=== PATIENT | female | born 1960 | race Caucasian/White ===

== ENCOUNTER → 2016-12-09 | Outpatient (CLI) | payer MEDICARE, MEDICAID ==
[~2016-12-09] MED LIST: AMOXICILLIN 8751 TAB PO; ANUSOL-HC SUPPO25 MG RC; ASPIRIN 81M81 MG/TA2 PO; BACTRIM DS 8001 TAB PO; CALCIUM PO; CEFTIN500 MG PO; CELEXA 20MG20 MG/TAB PO; CELEXA40 MG PO; CEPHALEXIN500 M1 PO; CIPRO 500MG TA500 MG PO; CLARITIN 1010 MG/TAB PO; COLACE 100100 MG/CAP PO; FLAGYL500 MG PO; GLUCOPHAGE850 MG/TAB PO; GLUCOTROL 5M5 MG/TAB PO; JANUVIA50 MG PO; LAMICTAL 100MG100 MG PO; LANTUS100 U/ML SC; LASIX 20MG TABL20 MG PO; LIPITOR 10MG10 MG PO; LOPRESSOR 225 MG/TAB PO; MED FOR ANXIETY; MOBIC 7.5MG7.5 MG PO; MOTRIN 600600 MG/TAB PO; NORCO 325 MG-51 TAB PO; PERCOCET 325 MG1 TA2 PO; PHENERGAN 25 TA25 MG PO; PRIL40 PO; PRINIVIL10 MG PO; PRINZIDE 12.5 M1 TA1 PO; PROTONIX 40MG T40 MG PO; REGLAN 10MG10 MG/TAB PO; SEROQUEL 2525 MG/TAB PO; SEROQUEL50 MG PO; TRADJENTA5 MG PO; ULTRAM 50MG TAB50 MG PO; ZOFRAN 4MG T4 MG/TAB PO; ZOFRAN ODT4 MG PO; ZOFRAN8 MG PO; ZYRTEC 10MG10 MG PO; ZYVOX 600MG600 MG PO
== END ==
LOC: BHSO 08:44
DX: F33.1 Major depressive disorder, recurrent, moderate (principal)

== ENCOUNTER → 2017-01-07 | Outpatient (CLI) | payer MEDICARE, MEDICAID | LOC: BHSO 09:49 | DX: F31.81 Bipolar II disorder (principal) ==

== ENCOUNTER → 2017-03-07 | Outpatient (CLI) | payer MEDICARE | LOC: BHSO 09:57 | DX: F41.1 Generalized anxiety disorder (principal) ==

== ENCOUNTER 2017-04-06 13:07 | Emergency (ER) | payer MEDICARE ==
[~2017-04-06] VITALS: Ht 160 cm; Wt 111.8 kg
[2017-04-06 13:18] VITALS: BP 141/67; TEMP 98.4
[2017-04-06] MEDS ORDERED: SEROQUEL 1100 MG/TAB PO (13:43)
[2017-04-06] MEDS ORDERED: LIPITOR 40MG TA40 MG PO (13:43)
[2017-04-06] MEDS ORDERED: SYNTHROID0.075 MG/T PO (13:44)
[2017-04-06] MEDS ORDERED: ZOLOFT 50MG50 MG PO (13:44)
[2017-04-06] MEDS ORDERED: TESSALON PERLE200 MG PO (14:54)
[2017-04-06 15:02] VITALS: PULSE 66
== END 2017-04-06 15:02 | disposition home or self-care (01) ==
LOC: COL.ER 13:07
DX: R05 Cough (principal); F41.9 Anxiety disorder, unspecified; F32.9 Major depressive disorder, single episode, unspecified; E11.9 Type 2 diabetes mellitus without complications; Z79.4 Long term (current) use of insulin; Z87.891 Personal history of nicotine dependence

== ENCOUNTER → 2017-07-06 | Outpatient (CLI) | payer MEDICARE ==
[~2017-07-06] MED LIST changes: +LIPITOR 40MG TA40 MG PO; +SEROQUEL 1100 MG/TAB PO; +SYNTHROID0.075 MG/T PO; +TESSALON PERLE200 MG PO; +ZOLOFT 50MG50 MG PO
== END ==
LOC: BHSO 11:37
DX: F41.1 Generalized anxiety disorder (principal)
CPT/HCPCS: G0463

== ENCOUNTER 2017-08-07 20:50 | Emergency (ER) | payer MEDICARE ==
[~2017-08-07] VITALS: Ht 160 cm; Wt 106.8 kg
[2017-08-07 20:54] VITALS: BP 144/64; PULSE 76; TEMP 98.4
[2017-08-07] MEDS ORDERED: BACTRIM DS 8001 TAB PO (21:28)
[2017-08-07] MEDS ORDERED: CLARITIN 1010 MG/TAB PO (21:42)
[2017-08-07] MEDS ORDERED: WOMEN'S DAILY1 TAB PO (21:42)
== END 2017-08-07 21:49 | disposition home or self-care (01) ==
LOC: COL.ER 20:50
DX: L03.112 Cellulitis of left axilla (principal); E11.9 Type 2 diabetes mellitus without complications; F32.9 Major depressive disorder, single episode, unspecified; F41.9 Anxiety disorder, unspecified; F03.90 Unspecified dementia, unspecified severity, without behavioral disturbance, psychotic disturbance, mood disturbance, and anxiety; E03.9 Hypothyroidism, unspecified; E78.5 Hyperlipidemia, unspecified; Z87.891 Personal history of nicotine dependence; Z90.710 Acquired absence of both cervix and uterus; Z98.890 Other specified postprocedural states; Z79.4 Long term (current) use of insulin

== ENCOUNTER → 2017-10-03 | Outpatient (REF) ==
[~2017-10-03] MED LIST changes: +WOMEN'S DAILY1 TAB PO
== END ==
LOC: ZLAB.WCH 08:39
DX: Z01.89 Encounter for other specified special examinations (principal)

== ENCOUNTER → 2017-11-14 | Outpatient (REF) | LOC: ZLAB.WCH 18:10 | DX: Z01.89 Encounter for other specified special examinations (principal) ==

== ENCOUNTER → 2018-02-22 | Outpatient (REF) | LOC: ZLAB.WCH 17:10 | DX: Z01.89 Encounter for other specified special examinations (principal) ==

== ENCOUNTER 2018-04-04 22:54 | Emergency (ER) | payer MEDICARE ==
[~2018-04-04] VITALS: Ht 160 cm; Wt 113.6 kg
[2018-04-04 23:01] VITALS: TEMP 98.6
[2018-04-04 23:38] LABS: BASO # 0.1 (0.0-0.2); BASO % 0.4 % (0.0-2.0); EOS # 0.2 (0.0-0.7); EOS % 1.4 % (0-4.0); GRAN # 8.7 (1.4-6.5); GRAN % 76.6 % (42.2-75.2); HEMOGLOBIN 12.2 g/dl (12.5-16.0); LYMPH # 1.9 (1.2-3.4); LYMPH % 16.6 % (20.0-51.0); MEAN CELL VOLUME 92 fl (80.0-100.0); MEAN CORPUSCULAR HEMOGLOBIN 30 pg (27.0-31.0); MEAN CORPUSCULAR HGB CONC 33 g/dl (33.0-37.0); MEAN PLATELET VOLUME 10.9 fl (7.4-10.4); MONO # 0.5 (0.1-0.6); MONO % 4.6 % (1.7-9.3); PLATELET COUNT 182 K/mm3 (130-400); RED BLOOD COUNT 4.04 M/mm3 (4.10-5.30); REDCELL DISTRIBUTION WIDTH-CV 13.2 % (11.5-14.5)
[2018-04-04 23:43] LABS: INR 1.1 (0.8-3.0); PROTHROMBIN TIME 12.1 SECONDS (9.7-12.8)
[2018-04-04 23:50] LABS: ALANINE AMINOTRANSFERASE 20 U/L (9-52); ALBUMIN 4.3 gm/dL (3.5-5.0); ALKALINE PHOSPHATASE 125 U/L (50-136); ANION GAP 9 mmol/L (7-16); AST,SGOT 26 U/L (15-37); BILIRUBIN,TOTAL 0.3 mg/dL (0.0-1.0); BLOOD UREA NITROGEN 27 mg/dL (7-17); CALCIUM 9.3 mg/dL (8.4-10.2); CARBON DIOXIDE 26 mmol/L (22-30); CHLORIDE 109 mmol/L (98-107); CREATININE, serum 1.54 mg/dL (0.52-1.25); GLUCOSE 183 mg/dL (74-106); POTASSIUM 4.2 mmol/L (3.4-5.0); SODIUM 144 mmol/L (137-145); TOTAL PROTEIN 7.7 gm/dL (6.4-8.2)
[2018-04-05 00:32] LABS: TROPONIN-I < 0.012 ng/mL (0.000-0.034)
[2018-04-05 01:53] LABS: COLLECTION METHOD CLEAN CATCH
[2018-04-05 02:21] LABS: MUCOUS Present /lpf; PH 5 (5-8); SQUAMOUS EPITHELIAL 20-50 /hpf; URINE APPEARANCE Cloudy; URINE BACTERIA Rare /hpf; URINE BILIRUBIN Negative (NEGATIVE); URINE BLOOD Negative (NEGATIVE); URINE COLOR Yellow; URINE GLUCOSE Negative (NEGATIVE); URINE KETONE Negative (NEGATIVE); URINE LEUKOCYTE ESTERASE 3+ (NEGATIVE); URINE NITRATE Negative (NEGATIVE); URINE PROTEIN(semi-quant) Negative (NEGATIVE); URINE UROBILINOGEN Negative (NEGATIVE)
[2018-04-05 03:20] VITALS: BP 108/53; PULSE 66
== END 2018-04-05 03:36 | disposition home or self-care (01) ==
LOC: COL.ER 22:54
PROVIDERS: Emergency Medicine
DX: R07.89 Other chest pain (principal); N39.0 Urinary tract infection, site not specified; I12.9 Hypertensive chronic kidney disease with stage 1 through stage 4 chronic kidney disease, or unspecified chronic kidney disease; E11.22 Type 2 diabetes mellitus with diabetic chronic kidney disease; N18.9 Chronic kidney disease, unspecified; K21.9 Gastro-esophageal reflux disease without esophagitis; E78.5 Hyperlipidemia, unspecified; E66.9 Obesity, unspecified; Z68.41 Body mass index [BMI] 40.0-44.9, adult; Z79.4 Long term (current) use of insulin
CPT/HCPCS: A4216; J0696

== ENCOUNTER 2018-06-06 07:46 | Day surgery (SDC) | payer MEDICARE ==
[~2018-06-06] VITALS: Ht 160 cm; Wt 114.4 kg
[2018-06-06] MEDS ORDERED: LIPITOR 10MG10 MG PO (08:12)
[2018-06-06] MEDS ORDERED: FLEXERIL 1010 MG/TAB PO (08:13)
[2018-06-06] MEDS ORDERED: PRINIVIL5 MG PO (08:14)
[2018-06-06] MEDS ORDERED: CARAFATE 1GM1 G PO (08:16)
[2018-06-06 08:17] VITALS: BP 125/70; PULSE 66; TEMP 97.2
[2018-06-06] MEDS ORDERED: TYLENOL 500MG500 MG PO (08:17)
[2018-06-06 09:25] VITALS: BP 137/61; PULSE 60; TEMP 97.1
[2018-06-06 09:40] VITALS: BP 134/64; PULSE 55
[2018-06-06 09:55] VITALS: BP 122/61; PULSE 60
[2018-06-06 10:10] VITALS: BP 131/59; PULSE 63
--- NOTE | 2018-06-06 10:38 | NUR ---
Pt returned via cart to [facility]. Pt A&O. VSS-see flowsheet. Pt tolerated a muffin and coffee. Daughter, Joselin and son in law present. Dr Brown visited with family and pt after procedure. Discharge teaching completed, all verbalized understanding. Pt dressing after IV removed and taken via wheelchair to private vehicle for dc home with son in law driving.
== END 2018-06-06 10:38 | disposition home or self-care (01) ==
LOC: SDCO 07:46
DX: K29.30 Chronic superficial gastritis without bleeding (principal); E07.9 Disorder of thyroid, unspecified; E11.9 Type 2 diabetes mellitus without complications; Z79.4 Long term (current) use of insulin; Z79.899 Other long term (current) drug therapy; I25.119 Atherosclerotic heart disease of native coronary artery with unspecified angina pectoris; K21.9 Gastro-esophageal reflux disease without esophagitis; I11.9 Hypertensive heart disease without heart failure; I69.354 Hemiplegia and hemiparesis following cerebral infarction affecting left non-dominant side; Z87.891 Personal history of nicotine dependence; I87.2 Venous insufficiency (chronic) (peripheral); F32.9 Major depressive disorder, single episode, unspecified; F41.9 Anxiety disorder, unspecified; F03.90 Unspecified dementia, unspecified severity, without behavioral disturbance, psychotic disturbance, mood disturbance, and anxiety; Z90.710 Acquired absence of both cervix and uterus; E66.01 Morbid (severe) obesity due to excess calories; Z68.42 Body mass index [BMI] 45.0-49.9, adult; Z87.11 Personal history of peptic ulcer disease
CPT/HCPCS: J2704; J7030

== ENCOUNTER → 2018-07-14 | Outpatient (CLI) | payer MEDICARE ==
[~2018-07-14] MED LIST changes: +CARAFATE 1GM1 G PO; +FLEXERIL 1010 MG/TAB PO; +PRINIVIL5 MG PO; +TYLENOL 500MG500 MG PO
== END ==
LOC: COL.RAD 08:16
DX: M47.812 Spondylosis without myelopathy or radiculopathy, cervical region (principal); M48.02 Spinal stenosis, cervical region; R26.0 Ataxic gait

== ENCOUNTER → 2018-10-05 | Outpatient (CLI) | payer MEDICARE, MEDICAID | LOC: BHSO 14:51 | DX: F33.42 Major depressive disorder, recurrent, in full remission (principal) | CPT/HCPCS: G0463 ==

== ENCOUNTER → 2018-12-27 | Outpatient (CLI) | payer MEDICARE, MEDICAID | LOC: BHSO 13:00 | DX: F41.1 Generalized anxiety disorder (principal) | CPT/HCPCS: G0463 ==

== ENCOUNTER → 2019-08-29 | Outpatient (CLI) | payer MEDICARE, MEDICAID | LOC: BHSO 11:20 | DX: F31.81 Bipolar II disorder (principal) ==

== ENCOUNTER → 2019-11-28 | Outpatient (CLI) | payer MEDICARE, MEDICAID | LOC: BHSO 09:46 | DX: F31.81 Bipolar II disorder (principal) | CPT/HCPCS: G0463 ==